=== PATIENT | female | born 1975 | race African-American/Black ===

== ENCOUNTER 2022-05-09 12:17 | Emergency (ER) | payer MEDICAID, OTHER ==
[~2022-05-09] VITALS: Ht 165.1 cm; Wt 102.0 kg
[2022-05-09 13:28] VITALS: BP 92/52
[2022-05-09] MEDS ORDERED: LORazepam 0.5 MG TAB PO ONE (13:30)
[2022-05-09] MEDS ORDERED: HYDR50CA PO (14:00)
== END 2022-05-09 14:03 | disposition home or self-care (01) ==
LOC: ER 12:17
DX: F41.1 Generalized anxiety disorder (principal)

== ENCOUNTER 2022-10-04 18:13 | Emergency (ER) | payer MEDICAID, OTHER ==
[~2022-10-04] VITALS: Ht 165.1 cm; Wt 102.6 kg
[~2022-10-04 18:13] MED LIST: HYDR50CA PO
[2022-10-04 18:37] VITALS: BP 97/56; PULSE 78; RESP 16; TEMP 98.4; O2SAT 96
[2022-10-04 21:39] LABS: COVID19 ANTIGEN SOFIA FIA NEGATIVE (NEGATIVE); Rapid Influenza A Negative (Negative); Rapid Influenza B Negative (Negative)
[2022-10-04] MEDS ORDERED: ACET500T58 PO (21:59)
[2022-10-04] MEDS ORDERED: ZOFR4T PO (21:59)
[2022-10-04] MEDS ORDERED: IBUP-1455 PO (21:59)
== END 2022-10-04 22:04 | disposition home or self-care (01) ==
LOC: ER 18:13
DX: B34.9 Viral infection, unspecified (principal); Z79.899 Other long term (current) drug therapy; Z20.822 Contact with and (suspected) exposure to COVID-19
CPT/HCPCS: 36415; 87426; 87804

== ENCOUNTER 2022-11-21 22:34 | Emergency (ER) | payer MEDICAID ==
[~2022-11-21] VITALS: Ht 165.1 cm; Wt 108.0 kg
[~2022-11-21 22:34] MED LIST changes: +ACET500T58 PO; +IBUP-1455 PO; +ZOFR4T PO
[2022-11-21 22:45] VITALS: BP 136/63; PULSE 100; RESP 18; TEMP 97.9; O2SAT 98
[2022-11-22] MEDS ORDERED: KETOROLAC TROMETH 30 MG/ML 1ML VIAL IM ONE (01:15)
[2022-11-22] MEDS ORDERED: DexAMETHasone SOD PHOS 10MG/1ML VIAL INJ IM ONE (01:15)
[2022-11-22] MEDS ORDERED: IBUP-1455 PO (01:24)
[2022-11-22] MEDS ORDERED: CYCL-837 PO (01:24)
== END 2022-11-22 01:44 | disposition home or self-care (01) ==
LOC: ER 22:38
DX: S00.83XA Contusion of other part of head, initial encounter (principal); R42 Dizziness and giddiness; F41.9 Anxiety disorder, unspecified; F20.9 Schizophrenia, unspecified; W22.8XXA Striking against or struck by other objects, initial encounter; Y93.89 Activity, other specified; Y92.89 Other specified places as the place of occurrence of the external cause; Y99.8 Other external cause status
CPT/HCPCS: 96372; 99284; J1100; J1885

== ENCOUNTER 2023-03-18 21:41 | Emergency (ER) | payer MEDICAID ==
[~2023-03-18] VITALS: Ht 165.1 cm; Wt 108.0 kg
[~2023-03-18 21:41] MED LIST changes: +CYCL-837 PO
[2023-03-18 23:13] LABS: Basophils # (auto) 0 10 ^3/uL (0-0.2); Basophils % (auto) 0.3 % (0.0-2.0); Eosinophils # (auto) 0.1 10 ^3/uL (0-0.8); Hematocrit 35.3 % (36.0-46.0); Hemoglobin 11.7 g/dL (12.2-16.2); Lymphocytes # (auto) 3.7 10 ^3/uL (0.4-5.4); Lymphocytes % (auto) 43.5 % (10.0-50.0); Mean Corpuscular Hemoglobin 30.9 pg (28.0-32.0); Mean Corpuscular Hgb Conc. 33.1 g/dL (32.0-36.0); Mean Corpuscular Volume 93.5 fL (80.0-100.0); Monocytes # (auto) 0.7 10 ^3/uL (0-1.3); Monocytes % (auto) 8.7 % (0.0-12.0); Neutrophils % (auto) 46.5 % (37.0-80.0); Red Blood Cells 3.77 10^6/uL (4.0-5.20); White Blood Cell 8.5 10^3/uL (4.4-10.8)
[2023-03-18 23:14] LABS: Albumin 4.1 g/dL (3.2-4.8); Alkaline Phosphatase 99 U/L (46-116); Anion Gap 4 (5-15); Aspartate Aminotransferase 12 U/L (13-40); BUN/Creatinine Ratio 9.9 (10.0-20.0); Blood Urea Nitrogen 10 mg/dL (9-23); Calcium 8.7 mg/dL (8.7-10.4); Carbon Dioxide 26 mmol/L (20-30); Chloride 111 mmol/L (98-107); Glucose 73 mg/dL (74-106); Lipase 35 U/L (12-53); Potassium 3.8 mmol/L (3.5-5.1); Sodium 141 mmol/L (136-145)
[2023-03-18 23:15] LABS: Bilirubin, Total 0.2 mg/dL (0.2-1.0); Total Protein 6.9 g/dL (5.7-8.2)
[2023-03-18 23:21] LABS: Alanine Aminotransferase 9 U/L (7-40)
[2023-03-19] MEDS ORDERED: ONDANSETRON ODT 4 MG TAB PO ONE (00:30)
[2023-03-19] MEDS ORDERED: SODIUM CHLORIDE 0.9% 1,000 ML IV ONE (00:30)
[2023-03-19] MEDS ORDERED: DIPHENOXYLATE W/ATROPINE 2.5 MG TAB PO ONE (00:30)
[2023-03-19] MEDS ORDERED: LOPE7.5C PO (00:31)
[2023-03-19] MEDS ORDERED: DICY10CA PO (00:31)
[2023-03-19] MEDS ORDERED: ZOFR4T PO (00:31)
[2023-03-19 02:57] VITALS: BP 115/71; PULSE 60; RESP 16; O2SAT 98
== END 2023-03-19 02:58 | disposition home or self-care (01) ==
LOC: ER 21:41
DX: R10.9 Unspecified abdominal pain (principal); R11.2 Nausea with vomiting, unspecified; R19.7 Diarrhea, unspecified; Z79.1 Long term (current) use of non-steroidal anti-inflammatories (NSAID); Z79.2 Long term (current) use of antibiotics; Z79.899 Other long term (current) drug therapy
CPT/HCPCS: 36415; 80053; 83690; 85025; 99283; Q0162